=== PATIENT | male | born 1965 | race Caucasian/White ===

== ENCOUNTER 2021-08-09 10:55 | Observation (INO) ==
[2021-08-09 11:51] LABS: Basophils % 0.3 %; Eosinophils % 0.1 %; Hematocrit 42.2 % (37.5-50.1); Hemoglobin 14.2 g/dL (12.9-16.9); Immature Granulocytes % 0.6 % (0-4); Lymphocytes # 1.6 K/mcL (0.6-4.6); Lymphocytes % 11.9 %; Mean Corpuscular HGB Conc 33.6 g/dL (31.6-35.5); Mean Corpuscular Hemoglobin 30.5 pg (28.0-33.3); Mean Corpuscular Volume 90.8 fL (83.0-100.0); Mean Platelet Volume 10.7 fL (9.4-12.4); Monocytes # 0.7 K/mcL (0.0-1.3); Monocytes % 5.2 %; Neutrophils # 11.1 K/mcL (1.6-8.9); Platelet Count 265 K/mcL (140-400); Red Blood Count 4.65 M/mcL (4.19-5.50); Red Cell Distribution Width 13.4 % (11.5-14.5); Segmented Neutrophils % 81.9 %; White Blood Count 13.6 K/mcL (4.3-11.1)
[2021-08-09] MEDS ORDERED: 0.9 % Sodium Chloride 1,000 ML IV ONE (11:51)
[2021-08-09 12:00] LABS: INR 1.1; Prothrombin Time 12.1 Seconds (9.4-12.1)
[2021-08-09 12:03] LABS: Activated Partial Thrombo Time 33.3 Seconds (26.0-36.0)
[2021-08-09 12:29] LABS: Troponin I < 0.03 ng/mL (< 0.04)
[2021-08-09 12:34] LABS: BUN/Creatinine Ratio 48 (6-26); Blood Urea Nitrogen 40 mg/dL (6-20); Calcium 9.5 mg/dL (8.6-10.3); Carbon Dioxide 21 mEq/L (23-29); Chloride 107 mEq/L (98-107); Glucose 118 mg/dL (70-105); Osmolality,Calculated 295 (280-300); Potassium 4.1 mEq/L (3.5-5.1); Sodium 137 mEq/L (136-145); eGFR For African Americans > 60 (> 60); eGFR For Non-African Americans > 60 (> 60)
[2021-08-09 13:01] LABS: Bilirubin,Urine Negative (Negative); Blood,Urine Negative (Negative); Clarity,Urine Clear (Clear); Color,Urine Colorless (Yellow); Glucose,Urine (UA) Normal (Normal); Ketones,Urine Negative (Negative); Leukocyte Esterase,Urine Negative (Negative); Nitrite,Urine Negative (Negative); PH,Urine 5.5 pH Units (5.0-8.0); Protein,Urine Negative (Neg-Trace); Urobilinogen,Urine Normal (Normal)
[2021-08-09 13:11] LABS: Thyroid Stimulating Hormone 2.157 mcIU/mL (0.340-5.600)
[2021-08-09] MEDS ORDERED: Naloxone 0.4 MG/ML INJ IVP PRN (13:23)
[2021-08-09] MEDS ORDERED: Ondansetron 4 MG/2 ML VIAL IVP PRN (13:23)
[2021-08-09] MEDS ORDERED: Melatonin 3 MG TABLET PO PRN (13:23)
[2021-08-09] MEDS ORDERED: Perflutren Lipid Microsphere 1.3 ML in 0.9 % Sodium Chloride 8.7 ML IVP PRN (13:29)
[2021-08-09] MEDS ORDERED: *HR* Metoprolol 5 MG/5 ML VIAL IVP ONE (15:34)
[2021-08-09] MEDS: 0.9 % Sodium Chloride 1,000 ML IVC SCH (16:06)
[2021-08-09] MEDS: DilTIAZem 50 MG/50 ML IV.SOLN IVC SCH (16:07)
[2021-08-09] MEDS: Acetaminophen 325 MG TABLET PO PRN ×2 (16:15→21:39)
[2021-08-09] MEDS: Metoprolol XL (24 HR) Succ 25 MG TAB.ER.24H PO SCH (20:49)
[2021-08-10] MEDS: 0.9 % Sodium Chloride 1,000 ML IVC SCH ×2 (00:14→08:32)
[2021-08-10 02:22] LABS: Basophils % 0.4 %; Eosinophils # 0.1 K/mcL (0.0-0.6); Eosinophils % 1.2 %; Hematocrit 32.9 % (37.5-50.1); Immature Granulocytes % 0.4 % (0-4); Lymphocytes # 2.1 K/mcL (0.6-4.6); Lymphocytes % 27.3 %; Mean Corpuscular Hemoglobin 30.9 pg (28.0-33.3); Mean Corpuscular Volume 90.6 fL (83.0-100.0); Mean Platelet Volume 10.8 fL (9.4-12.4); Monocytes # 0.6 K/mcL (0.0-1.3); Monocytes % 7.6 %; Neutrophils # 4.8 K/mcL (1.6-8.9); Platelet Count 187 K/mcL (140-400); Red Blood Count 3.63 M/mcL (4.19-5.50); Red Cell Distribution Width 13.6 % (11.5-14.5); Segmented Neutrophils % 63.1 %; White Blood Count 7.6 K/mcL (4.3-11.1)
[2021-08-10 02:23] LABS: Hemoglobin 11.2 g/dL (12.9-16.9)
[2021-08-10 02:43] LABS: Alanine Aminotransferase 21 Units/L (7-52); Albumin 3.3 g/dL (3.5-5.7); Albumin/Globulin Ratio 2.2 (1.1-2.2); Alkaline Phosphatase 49 Units/L (34-104); Aspartate Amino Transferase 13 Units/L (13-39); BUN/Creatinine Ratio 30 (6-26); Bilirubin,Total 0.9 mg/dL (0.3-1.0); Blood Urea Nitrogen 23 mg/dL (6-20); Carbon Dioxide 22 mEq/L (23-29); Chloride 112 mEq/L (98-107); Chol/HDL Ratio 5.3 (0-4.9); Cholesterol 175 mg/dL (< 200); Globulin 1.5 g/dL (2.4-3.5); Glucose 93 mg/dL (70-105); HDL Cholesterol 33 mg/dL (40-59); LDL Cholesterol,Calculated 120 mg/dL (< 100); Osmolality,Calculated 293 (280-300); Sodium 140 mEq/L (136-145); Total Protein 4.8 g/dL (6.4-8.9); Triglycerides 108 mg/dL (< 150); eGFR For African Americans > 60 (> 60); eGFR For Non-African Americans > 60 (> 60)
[2021-08-10] MEDS ORDERED: *HR* Enoxaparin 40 MG/0.4 ML SYRINGE SQ SCH (06:00)
[2021-08-10] MEDS: Metoprolol XL (24 HR) Succ 25 MG TAB.ER.24H PO SCH (08:34)
[2021-08-10] MEDS: DilTIAZem 50 MG/50 ML IV.SOLN IVC SCH (09:13)
[2021-08-10] MEDS ORDERED: Pantoprazole 40 MG VIAL IVP ONE (09:50)
[2021-08-10] MEDS: Acetaminophen 325 MG TABLET PO PRN ×2 (10:52→16:29)
[2021-08-10] MEDS: Pantoprazole 40 MG VIAL IVP SCH (18:13)
[2021-08-11] MEDS: Pantoprazole 40 MG VIAL IVP SCH (06:06)
[2021-08-11] MEDS: Acetaminophen 325 MG TABLET PO PRN (09:21)
[2021-08-11] MEDS: Metoprolol XL (24 HR) Succ 25 MG TAB.ER.24H PO SCH (09:21)
[2021-08-11 10:30] LABS: % Iron Saturation 19 % (20-55); BUN/Creatinine Ratio 15 (6-26); Blood Urea Nitrogen 13 mg/dL (6-20); Calcium 8.7 mg/dL (8.6-10.3); Carbon Dioxide 27 mEq/L (23-29); Chloride 110 mEq/L (98-107); Glucose 96 mg/dL (70-105); Iron 72 mcg/dL (65-175); Magnesium 2.2 mg/dL (1.6-2.6); Osmolality,Calculated 292 (280-300); Potassium 3.8 mEq/L (3.5-5.1); Sodium 141 mEq/L (136-145); Transferrin 270 mg/dL (203-362); eGFR For African Americans > 60 (> 60); eGFR For Non-African Americans > 60 (> 60)
[2021-08-11 10:40] LABS: Basophils % 0.5 %; Eosinophils # 0.1 K/mcL (0.0-0.6); Eosinophils % 1.1 %; Hematocrit 36.2 % (37.5-50.1); Hemoglobin 12.1 g/dL (12.9-16.9); Immature Granulocytes % 0.5 % (0-4); Lymphocytes # 1.2 K/mcL (0.6-4.6); Lymphocytes % 17.4 %; Mean Corpuscular HGB Conc 33.4 g/dL (31.6-35.5); Mean Corpuscular Hemoglobin 30.5 pg (28.0-33.3); Mean Corpuscular Volume 91.2 fL (83.0-100.0); Mean Platelet Volume 10.5 fL (9.4-12.4); Monocytes # 0.4 K/mcL (0.0-1.3); Monocytes % 6.5 %; Neutrophils # 4.9 K/mcL (1.6-8.9); Platelet Count 192 K/mcL (140-400); Red Blood Count 3.97 M/mcL (4.19-5.50); Red Cell Distribution Width 13.6 % (11.5-14.5); White Blood Count 6.6 K/mcL (4.3-11.1)
[2021-08-11 10:48] LABS: Ferritin 245 ng/mL (20-250)
[2021-08-11 10:53] LABS: Folate 21.2 ng/mL (3.0-16.0)
[2021-08-11] MEDS ORDERED: Lidocaine -MPF 2% 2 ML VIAL ONE (13:07)
[2021-08-11] MEDS ORDERED: *HR* Propofol 200 MG/20 ML VIAL IVP ONE ×2 (13:07→13:39)
[2021-08-11 15:16] VITALS: BP 135/74; PULSE 64; TEMP 97.9; O2SAT 96
== END 2021-08-11 15:44 | disposition home or self-care (01) ==
LOC: 3BNU 10:55 → EMEROOARM 10:55 → SUATTDRO 13:46 → 3BNU 14:15
PROVIDERS: ADMIT Family Medicine; ATTEND Hospitalist
PROC: ENDOEBX (2021-08-11 13:00)